=== PATIENT | female | born 1965 | race Caucasian/White ===

== ENCOUNTER 2021-09-13 16:34 | Emergency (ER) | payer BC ==
[2021-09-13 16:51] VITALS: BMI 31.1
[2021-09-13] MEDS ORDERED: CASIRIVIMAB/IMDEVIMAB 10 ML in SODIUM CHLORIDE 100 ML IVPB ONE (17:00)
[2021-09-13] MEDS ORDERED: ACETAMINOPHEN 325 MG TABLET (FP) PO ONE (17:07)
[2021-09-13] MEDS ORDERED: ACETAMINOPHEN 325 MG TABLET (FP) ONE (17:19)
[2021-09-13] MEDS ORDERED: AZITHROMYCIN 500 MG TABLET PO ONE (18:46)
[2021-09-13] MEDS ORDERED: DEXAMETHASONE SOD PHOSPHATE 10 MG/1 ML VIAL IVPUSH ONE (18:46)
[2021-09-13] MEDS ORDERED: DEXAMETHASONE SOD PHOSPHATE 10 MG/1 ML VIAL ONE (19:10)
[2021-09-13] MEDS ORDERED: AZITHROMYCIN 500 MG TABLET ONE (19:10)
[2021-09-13 19:28] VITALS: BP 122/81; PULSE 90; TEMP 98.3
== END 2021-09-13 20:00 | disposition home or self-care (01) ==
LOC: JER 16:34
PROC: 3E033GC Introduction of Other Therapeutic Substance into Peripheral Vein, Percutaneous Approach (ICD-10-PCS; principal; 2021-09-13)
DX: U07.1 COVID-19 (principal); J12.82 Pneumonia due to coronavirus disease 2019
CPT/HCPCS: 71046-TC-FY; 99284-25; J1100; Q0240

== ENCOUNTER 2022-12-04 07:15 | Day surgery (SDC) | payer BC ==
[2022-11-29 16:31] VITALS: BMI 36.0
[2022-12-04] MEDS ORDERED: LIDOCAINE HCL/PF 2% SDV 5ML VIAL ONE (07:27)
[2022-12-04] MEDS ORDERED: PROPOFOL 120 ML ONE (07:27)
[2022-12-04 09:46] VITALS: TEMP 97.6
[2022-12-04 11:47] VITALS: BP 136/77; PULSE 69; RESP 20
== END 2022-12-04 10:15 | disposition home or self-care (01) ==
LOC: FASU-ENDO 07:15
PROVIDERS: ATTEND Internal Medicine Gastroenterology
PROC: 0DB98ZX Excision of Duodenum, Via Natural or Artificial Opening Endoscopic, Diagnostic (ICD-10-PCS; 2022-12-04)
PROC: 0DB78ZX Excision of Stomach, Pylorus, Via Natural or Artificial Opening Endoscopic, Diagnostic (ICD-10-PCS; 2022-12-04)
PROC: 0DBH8ZX Excision of Cecum, Via Natural or Artificial Opening Endoscopic, Diagnostic (ICD-10-PCS; principal; 2022-12-04 08:44)
DX: Z12.11 Encounter for screening for malignant neoplasm of colon (principal); D12.0 Benign neoplasm of cecum; K57.30 Diverticulosis of large intestine without perforation or abscess without bleeding; K29.50 Unspecified chronic gastritis without bleeding; Z01.818 Encounter for other preprocedural examination
CPT/HCPCS: 88305-TC; 88342-TC